=== PATIENT | male | born 1940 | race Caucasian/White ===

== ENCOUNTER 2017-04-21 09:43 | Outpatient (CLI) | payer MEDICARE ==
[~2017-04-21 09:43] MED LIST: ISOVUE-370 76%-LOCM 1 ML ONE
--- NOTE | 2017-04-21 14:41 | RAD ---
CYSTOGRAM: HISTORY: Urinary bladder stone. Surgery. FINDINGS: Approximately 100 cc of water-soluble contrast were instilled into the urinary bladder via the indwe lling suprapubic catheter. Irregularity of the bladder contour is consistent with chronic outlet ob struction and small bladder diverticula. There is no evidence of leak. Excess contrast was drained from the bladder. IMPRESSION: Postoperative changes of the bladder. No evidence of leak. Findings were called to Dr. Henson at 1050 hours. CODE CR POS: [id number]
== END 2017-04-21 09:44 | disposition home or self-care (01) ==
LOC: RAD 09:43
PROVIDERS: ATTEND Urology
DX: N21.0 Calculus in bladder (principal); Z98.890 Other specified postprocedural states
CPT/HCPCS: 51600; 74430

== ENCOUNTER 2018-06-21 11:38 | Outpatient (CLI) | payer MEDICARE ==
--- NOTE | 2018-06-21 13:43 | RAD ---
KUB: Date: 06/21/18 PROVIDED CLINICAL HISTORY: Bladder calculus. FINDINGS: Comparison with 02/07/17. The abdominal bowel gas pattern is nonspecific. No definite radiographically apparent urinary tract c alculi with limitations to overlying bowel content. Multiple phleboliths overlie the pelvis. Visualiz ed lung bases appear clear. Degenerative changes involve the spine. IMPRESSION: As above. POS: OFF
--- NOTE | 2018-06-21 14:53 | ULT ---
BILATERAL RENAL ULTRASOUND: Date: 06/21/18 COMPARISON: None. HISTORY: Renal cyst disease, renal stone disease, BPH. TECHNIQUE: Multiplanar Khalil scale sonographic imaging of the kidneys and the urinary bladder obtained. FINDINGS: Right kidney measures 11.7 x 5.4 x 5.8 cm. Left kidney measures 11.9 x 6.0 x 5.6 cm. Pre-void urinary bladder volume is 67 mL and post-void urinary bladder volume is 36 mL. There is a cyst in the upper pole of the right kidney measuring 2.9 x 3.0 x 2.9 cm. Additional cyst i n upper pole of right kidney medially measures 1.3 x 1.4 x 0.9 cm. No hydronephrosis noted on the rig ht. There is a 1.5 x 1.3 x 1.4 cm cyst in the lower pole of the left kidney. There is a nonspecific hypoechoic lesion in the upper pole of the left kidney measuring 1.5 x 1.5 x 1 .7 cm. This appeared to represent a cyst on the prior CT examination, but on this study demonstrates shadowing, which could be secondary to peripheral wall calcification. This thus does not meet criteri a for a simple cyst based on ultrasound. IMPRESSION: Renal cysts. Nonspecific hypoechoic lesion in upper pole of left kidney as detailed above. Shadowing associated with this lesion is a nonspecific finding which could be related to calcification. Recomme nd follow-up ultrasound in 6 months to document stability. POS: FAROOQ
== END 2018-06-21 11:39 | disposition home or self-care (01) ==
LOC: BICULT 11:38
PROVIDERS: ATTEND Urology
DX: N28.1 Cyst of kidney, acquired (principal); N40.1 Benign prostatic hyperplasia with lower urinary tract symptoms; N20.0 Calculus of kidney; M47.9 Spondylosis, unspecified; Z87.448 Personal history of other diseases of urinary system
CPT/HCPCS: 36415; 74018; 76770; 80048; 81001; 87086

== ENCOUNTER 2018-11-14 07:33 | Outpatient (CLI) | payer MEDICARE ==
[2018-11-14 08:12] LABS: Estimated GFR-MDRD - POC Greater than 90
--- NOTE | 2018-11-14 08:51 | CT ---
EXAM: Abdomen and pelvic CT scan with and without contrast: HISTORY: Follow-up renal cyst COMPARISON: None FINDINGS: The visualized lung bases are clear. Liver: Unremarkable. Gallbladder:Unremarkable. Pancreas:Unremarkable Spleen:Unremarkable. Adrenal glands:Unremarkable. Kidneys:Small nonobstructing right renal calculus.Multiple stable bilateral renal cysts. No evidence for bowel obstruction. No CT evidence for acute appendicitis. Urinary bladder appears unremarkable. Please noted bladder stone is no longer evident. No abscess, adenopathy, or abnormal fluid collection within the abdomen or pelvis. Prostate gland enlargement. Bilateral fat-containing hernias. IMPRESSION: Stable bilateral renal cysts. Small stable nonobstructing right renal calculus. Previously noted blad trinity calculus is no longer present. Other findings as above, stable.
[2018-11-14] MEDS ORDERED: Iopamidol 370 76% 100 ML VIAL ONE (14:36)
== END 2018-11-14 07:34 | disposition home or self-care (01) ==
LOC: CT 07:33
PROVIDERS: ATTEND Urology
DX: N20.0 Calculus of kidney (principal); N28.1 Cyst of kidney, acquired; N40.0 Benign prostatic hyperplasia without lower urinary tract symptoms; K46.9 Unspecified abdominal hernia without obstruction or gangrene; Z87.448 Personal history of other diseases of urinary system
CPT/HCPCS: 74178; 82565; Q9967

== ENCOUNTER 2020-12-04 23:16 | Observation (INO) | payer MEDICARE ==
[2020-12-04 23:55] LABS: #Basophils 0.1 thou/uL (0.0-0.2); #Eosinphils 0.4 thou/uL (0.0-0.7); #Lymphocytes 2.1 thou/uL (1.20-3.40); #Monocytes 0.6 thou/uL (0.11-0.59); #Neutrophils 4.5 thou/uL (1.40-6.50); %Basophils 0.9 % (0.0-1.0); %Eosinophils 4.9 % (0.0-10.0); %Monocytes 7.6 % (0.0-10.0); %Neutrophils 58.5 % (42.0-75.0); Hemoglobin 14.7 g/dL (14.0-18.0); Mean Corpuscular HGB CONC 33.9 g/dL (32.0-36.0); Mean Corpuscular Hemoglobin 32.6 pg (27.0-31.0); Mean Corpuscular Volume 96.2 fL (78.0-98.0); Mean Platelet Volume 7.4 fL (7.4-10.4); Platelet Count 193 thou/uL (130-400); RBC Distribution Width 13.4 % (11.5-14.5); Red Blood Cell (RBC) Count 4.51 mill/uL (4.70-6.10); White Blood Cell (WBC) Count 7.6 thou/uL (4.8-10.8)
[2020-12-05 00:16] LABS: ALT (SGPT) 26 U/L (8-55); AST (SGOT) 24 U/L (5-34); Albumin 4.1 g/dL (3.4-4.8); Alkaline Phosphatase 53 U/L (40-110); Anion Gap 12 mmol/L (10-20); BUN (Urea Nitrogen) 19 mg/dL (8.4-25.7); Bilirubin, Total 0.6 mg/dL (0.2-1.2); Calc. Creatinine Clearance 0 mL/min (70-130); Calcium 9.2 mg/dL (7.8-10.44); Carbon Dioxide 24 mmol/L (23-31); Chloride 108 mmol/L (98-107); Globulin 2.9 g/dL (2.4-3.5); Glucose 102 mg/dL (83-110); Potassium 4.4 mmol/L (3.5-5.1); Sodium 140 mmol/L (136-145)
[2020-12-05] MEDS ORDERED: Ondansetron ODT 4 MG TAB PO PRN (04:03)
[2020-12-05] MEDS ORDERED: Ondansetron PF 4 MG/2 ML Vial IVP PRN (04:03)
[2020-12-05] MEDS ORDERED: Acetaminophen 325 MG TAB PO PRN (04:03)
[2020-12-05] MEDS ORDERED: Aspirin Chewable 81 MG TAB PO SCH (04:15)
[2020-12-05] MEDS ORDERED: hydrALAZINE 20 MG/ML VIAL SLOW IVP PRN (04:29)
[2020-12-05 04:41] LABS: Bilirubin Negative (Negative); Blood, Urine Negative (Negative); Clarity Clear (Clear); Glucose, Urine (Dipstick) Normal (Negative); Ketone, Urine 10 mg/dL (Negative); Leukocyte Negative Leu/uL (Negative); Nitrite Negative (Negative); Protein, Urine (Dipstick) Negative (Neg-Trace); Specific Gravity, Urine 1.019 (1.002-1.036); Urobilinogen Normal mg/dL (Less than 2)
[2020-12-05] MEDS ORDERED: Aspirin Chewable 81 MG TAB ONE ×2 (04:57→09:08)
[2020-12-05 05:48] LABS: Troponin I 0.019 ng/mL (< 0.028)
[2020-12-05 07:53] LABS: SARS-CoV-2 NAA Rapid Test Not Detected (NotDetected)
[2020-12-05] MEDS ORDERED: Enoxaparin Sodium 40 MG/0.4 ML SYRINGE ONE (09:08)
[2020-12-05] MEDS: Enoxaparin Sodium 40 MG/0.4 ML SYRINGE SC SCH (09:13)
[2020-12-05] MEDS: Aspirin 81 mg Enteric Coated Tablet PO SCH (09:13)
[2020-12-05] MEDS ORDERED: Iopamidol-370 76% 500 ML 1 ML ONE (12:46)
[2020-12-05 16:48] VITALS: BMI 36.6
[2020-12-05 19:55] LABS: Magnesium 1.9 mg/dL (1.6-2.6)
[2020-12-05] MEDS ORDERED: Rosuvastatin 5 MG TAB PO SCH (21:00)
[2020-12-05] MEDS ORDERED: Atorvastatin Calcium 40 MG TAB PO SCH (21:00)
[2020-12-05] MEDS: Sotalol HCl 80 MG TAB PO SCH (21:02)
[2020-12-06 05:36] LABS: #Basophils 0.1 thou/uL (0.0-0.2); #Eosinphils 0.2 thou/uL (0.0-0.7); #Lymphocytes 1.5 thou/uL (1.20-3.40); #Monocytes 0.6 thou/uL (0.11-0.59); %Basophils 0.8 % (0.0-1.0); %Eosinophils 3.4 % (0.0-10.0); %Lymphocytes 20.6 % (21.0-51.0); %Monocytes 7.8 % (0.0-10.0); %Neutrophils 67.4 % (42.0-75.0); Mean Corpuscular HGB CONC 33.5 g/dL (32.0-36.0); Mean Corpuscular Hemoglobin 32.2 pg (27.0-31.0); Mean Corpuscular Volume 96.2 fL (78.0-98.0); Mean Platelet Volume 7.6 fL (7.4-10.4); Platelet Count 179 thou/uL (130-400); RBC Distribution Width 13.2 % (11.5-14.5); Red Blood Cell (RBC) Count 4.36 mill/uL (4.70-6.10); White Blood Cell (WBC) Count 7.4 thou/uL (4.8-10.8)
[2020-12-06] MEDS ORDERED: Levothyroxine 150 MCG TAB PO SCH (06:00)
[2020-12-06 06:13] LABS: Anion Gap 11 mmol/L (10-20); BUN (Urea Nitrogen) 14 mg/dL (8.4-25.7); Calc. Creatinine Clearance 119 mL/min (70-130); Calcium 8.7 mg/dL (7.8-10.44); Carbon Dioxide 25 mmol/L (23-31); Cardiac Risk 4.3 (Less than 4.5); Chloride 106 mmol/L (98-107); Cholesterol 160 mg/dl (< 200 Desired); Glucose 91 mg/dL (83-110); HDL Cholesterol 37 mg/dL (>60 Neg Risk); LDL Cholesterol, Calculated 83 mg/dL; Sodium 138 mmol/L (136-145); Triglycerides 199 mg/dL (Less than 150)
[2020-12-06 08:40] LABS: Hemoglobin A1c 4.6 % (4.0-6.0)
[2020-12-06] MEDS ORDERED: Tamsulosin HCl 0.4 MG CAP PO SCH (09:00)
[2020-12-06] MEDS ORDERED: Losartan 25 MG TAB PO SCH ×2 (09:00→10:50)
[2020-12-06] MEDS: Aspirin 81 mg Enteric Coated Tablet PO SCH (09:34)
[2020-12-06] MEDS: Enoxaparin Sodium 40 MG/0.4 ML SYRINGE SC SCH (09:34)
[2020-12-06] MEDS: Sotalol HCl 80 MG TAB PO SCH (09:35)
[2020-12-06 16:23] VITALS: BP 116/71; TEMP 97.6
== END 2020-12-06 16:32 | disposition home or self-care (01) ==
LOC: ERS 23:16 → ERHOLD 12-05 04:04 → 2SE 12-05 14:24
PROVIDERS: ADMIT Student in an Organized Health Care Education/Training Program; ATTEND Internal Medicine
DX: R42 Dizziness and giddiness (principal); R41.0 Disorientation, unspecified; E03.9 Hypothyroidism, unspecified; I25.10 Atherosclerotic heart disease of native coronary artery without angina pectoris; I16.0 Hypertensive urgency; I11.9 Hypertensive heart disease without heart failure; E78.5 Hyperlipidemia, unspecified; G89.29 Other chronic pain; M54.5 Low back pain; I73.9 Peripheral vascular disease, unspecified; I65.23 Occlusion and stenosis of bilateral carotid arteries; I70.0 Atherosclerosis of aorta; I08.3 Combined rheumatic disorders of mitral, aortic and tricuspid valves; Z79.82 Long term (current) use of aspirin; Z79.899 Other long term (current) drug therapy; Z88.1 Allergy status to other antibiotic agents; Z91.041 Radiographic dye allergy status; Z95.1 Presence of aortocoronary bypass graft; Z20.822 Contact with and (suspected) exposure to COVID-19
CPT/HCPCS: 70450; 70496; 70498; 70551; 71045; 80048; 80053; 80061; 81003; 83036; 83735; 84132; 84443; 84484 ×3; 85025 ×2; 93005; 93306; 96372 ×2; 97139 ×4; 99285; G0378 ×3; U0002; 36415; J1650; Q9967

== ENCOUNTER 2020-12-18 02:21 | Emergency (ER) | payer MEDICARE ==
[2020-12-18 03:00] LABS: #Basophils 0.1 thou/uL (0.0-0.2); #Eosinphils 0.3 thou/uL (0.0-0.7); #Lymphocytes 1.9 thou/uL (1.20-3.40); #Monocytes 0.6 thou/uL (0.11-0.59); %Eosinophils 3.7 % (0.0-10.0); %Lymphocytes 24.4 % (21.0-51.0); %Monocytes 7.9 % (0.0-10.0); Hemoglobin 14.9 g/dL (14.0-18.0); Mean Corpuscular Hemoglobin 32.9 pg (27.0-31.0); Mean Corpuscular Volume 96.7 fL (78.0-98.0); Mean Platelet Volume 7.7 fL (7.4-10.4); Platelet Count 197 thou/uL (130-400); RBC Distribution Width 13.5 % (11.5-14.5); Red Blood Cell (RBC) Count 4.52 mill/uL (4.70-6.10); White Blood Cell (WBC) Count 7.9 thou/uL (4.8-10.8)
[2020-12-18 03:18] LABS: ALT (SGPT) 28 U/L (8-55); AST (SGOT) 22 U/L (5-34); Albumin 4.1 g/dL (3.4-4.8); Alkaline Phosphatase 50 U/L (40-110); Anion Gap 10 mmol/L (10-20); BUN (Urea Nitrogen) 18 mg/dL (8.4-25.7); Bilirubin, Total 0.5 mg/dL (0.2-1.2); CK (CPK) 206 U/L (30-200); Calc. Creatinine Clearance 0 mL/min (70-130); Calcium 9.2 mg/dL (7.8-10.44); Carbon Dioxide 27 mmol/L (23-31); Chloride 108 mmol/L (98-107); Globulin 2.8 g/dL (2.4-3.5); Glucose 92 mg/dL (83-110); Potassium 4.3 mmol/L (3.5-5.1); Protein, Total 6.9 g/dL (5.8-8.1); Sodium 141 mmol/L (136-145)
[2020-12-18] MEDS ORDERED: Nitroglycerin 2% Ointment 1 INCH/1 GM Packet ONE (03:24)
== END 2020-12-18 04:00 | disposition home or self-care (01) ==
LOC: ERS 02:21
DX: I10 Essential (primary) hypertension (principal); R06.00 Dyspnea, unspecified; E03.9 Hypothyroidism, unspecified
CPT/HCPCS: 36415; 71045; 80053; 82550; 83880; 84484; 85025; 93005

== ENCOUNTER 2021-07-17 21:03 | Emergency (ER) | payer MEDICARE ==
[2021-07-17 21:46] LABS: #Eosinphils 0.1 thou/uL (0.0-0.7); #Lymphocytes 1.2 thou/uL (1.20-3.40); #Monocytes 0.5 thou/uL (0.11-0.59); #Neutrophils 2.8 thou/uL (1.40-6.50); %Eosinophils 2.4 % (0.0-10.0); %Lymphocytes 25.3 % (21.0-51.0); %Monocytes 11.6 % (0.0-10.0); %Neutrophils 60.7 % (42.0-75.0); Mean Corpuscular Hemoglobin 32.6 pg (27.0-31.0); Mean Corpuscular Volume 98.7 fL (78.0-98.0); Mean Platelet Volume 7.9 fL (7.4-10.4); Platelet Count 136 thou/uL (130-400); RBC Distribution Width 13.4 % (11.5-14.5); Red Blood Cell (RBC) Count 4.59 mill/uL (4.70-6.10); White Blood Cell (WBC) Count 4.6 thou/uL (4.8-10.8)
[2021-07-17] MEDS ORDERED: Acetaminophen 500 MG TAB ONE (21:46)
[2021-07-17 22:07] LABS: ALT (SGPT) 33 U/L (8-55); AST (SGOT) 28 U/L (5-34); Albumin 4.2 g/dL (3.4-4.8); Alkaline Phosphatase 60 U/L (40-110); Anion Gap 14 mmol/L (10-20); BUN (Urea Nitrogen) 15 mg/dL (8.4-25.7); Bilirubin, Total 0.7 mg/dL (0.2-1.2); Calc. Creatinine Clearance 0 mL/min (70-130); Calcium 8.9 mg/dL (7.8-10.44); Carbon Dioxide 25 mmol/L (23-31); Chloride 104 mmol/L (98-107); Globulin 2.9 g/dL (2.4-3.5); Glucose 99 mg/dL (83-110); Potassium 4.2 mmol/L (3.5-5.1); Protein, Total 7.1 g/dL (5.8-8.1); Sodium 139 mmol/L (136-145)
[2021-07-17] MEDS ORDERED: Labetalol HCl 100 MG/20 ML VIAL ONE (22:17)
[2021-07-17 22:23] LABS: Lipase 25 U/L (8-78); Magnesium 1.9 mg/dL (1.6-2.6)
[2021-07-18 00:31] LABS: SARS-CoV-2 NAA Rapid Test DETECTED (NotDetected)
== END 2021-07-18 01:16 | disposition home or self-care (01) ==
LOC: ERS 21:03
DX: U07.1 COVID-19 (principal); I10 Essential (primary) hypertension; E03.9 Hypothyroidism, unspecified; Z79.899 Other long term (current) drug therapy
CPT/HCPCS: 0240U; 71045; 80053; 83605; 83690; 83735; 83880; 84484; 85025; 87040; 93005; 36415; 96374

== ENCOUNTER 2021-08-03 14:16 | Outpatient (CLI) | payer MEDICARE | END 2021-08-03 14:17 | disposition home or self-care (01) | LOC: BICRAD 14:16 | PROVIDERS: ATTEND Urology | DX: N20.0 Calculus of kidney (principal); N28.1 Cyst of kidney, acquired; N40.1 Benign prostatic hyperplasia with lower urinary tract symptoms | CPT/HCPCS: 74018 ==

== ENCOUNTER 2023-03-01 08:30 | Outpatient (CLI) | payer MEDICARE ==
[2023-03-01] MEDS ORDERED: Iopamidol 370 76% 100 ML VIAL ONE (09:04)
== END 2023-03-01 08:31 | disposition home or self-care (01) ==
LOC: CT 08:30
PROVIDERS: ATTEND Urology
DX: N28.1 Cyst of kidney, acquired (principal); N20.0 Calculus of kidney
CPT/HCPCS: 74170; Q9967

== ENCOUNTER 2024-02-06 10:05 | Emergency (ER) | payer MEDICARE ==
[2024-02-06] MEDS ORDERED: HYDROcodone/Acetaminophen 5/325 mg Tablet ONE (11:00)
[2024-02-06] MEDS ORDERED: Boostrix 0.5 ML (Tdap) VIAL (>/=7 yrs of age) ONE (11:02)
[2024-02-06 12:04] LABS: #Basophils 0.05 10x3/uL (0.0-0.2); %Basophils 0.5 % (0.0-1.0); %Eosinophils 2.3 % (0.0-10.0); %Lymphocytes 17.6 % (21.0-51.0); %Monocytes 8.6 % (0.0-10.0); %Neutrophils 70.7 % (42.0-75.0); Hematocrit 42.4 % (42.0-52.0); Hemoglobin 14.1 g/dL (14.0-18.0); Mean Corpuscular HGB CONC 33.3 g/dL (32.0-36.0); Mean Corpuscular Hemoglobin 31.2 pg (27.0-31.0); Mean Corpuscular Volume 93.8 fL (78.0-98.0); Mean Platelet Volume 9.5 fL (7.4-10.4); Platelet Count 250 10x3/uL (130-400); Red Blood Cell (RBC) Count 4.52 mill/uL (4.70-6.10)
[2024-02-06 12:25] LABS: CRP,High Sensitivity (Inhouse) 2.96 mg/dL (< or = 0.5)
[2024-02-06 12:26] LABS: ALT (SGPT) 21 U/L (8-55); AST (SGOT) 15 U/L (5-34); Albumin 3.3 g/dL (3.4-4.8); Alkaline Phosphatase 61 U/L (40-110); Anion Gap 9 mmol/L (10-20); BUN (Urea Nitrogen) 15 mg/dL (8.4-25.7); Bilirubin, Total 0.4 mg/dL (0.2-1.2); Calc. Creatinine Clearance 0 mL/min (70-130); Calcium 9.1 mg/dL (7.8-10.44); Carbon Dioxide 25 mmol/L (23-31); Chloride 108 mmol/L (98-107); Estimated GFR 88; Globulin 3.5 g/dL (2.4-3.5); Glucose 99 mg/dL (83-110); Potassium 4.1 mmol/L (3.5-5.1); Protein, Total 6.8 g/dL (5.8-8.1); Sodium 138 mmol/L (136-145)
== END 2024-02-06 13:53 | disposition home or self-care (01) ==
LOC: ERS 10:05
DX: M54.12 Radiculopathy, cervical region (principal); L03.113 Cellulitis of right upper limb; I10 Essential (primary) hypertension
CPT/HCPCS: 36415; 80053; 83605; 85025; 86141; 87040; 90471; 90715

== ENCOUNTER 2025-04-11 00:40 | Emergency (ER) | payer MEDICARE ==
[2025-04-11] MEDS ORDERED: Ondansetron PF 4 MG/2 ML Vial ONE (01:07)
[2025-04-11 01:13] LABS: #Basophils 0.04 10x3/uL (0.0-0.2); #Eosinophils 0.20 10x3/uL (0.0-0.7); #Monocytes 0.84 10x3/uL (0.11-0.59); #Neutrophils 6.51 10x3/uL (1.40-6.50); %Basophils 0.4 % (0.0-1.0); %Eosinophils 2.2 % (0.0-10.0); %Lymphocytes 16.4 % (21.0-51.0); %Monocytes 9.2 % (0.0-10.0); %Neutrophils 71.5 % (42.0-75.0); Hematocrit 42.1 % (42.0-52.0); Hemoglobin 13.1 g/dL (14.0-18.0); Mean Corpuscular Hemoglobin 30.0 pg (27.0-31.0); Mean Corpuscular Volume 96.3 fL (78.0-98.0); Platelet Count 196 10x3/uL (130-400); Red Blood Cell (RBC) Count 4.37 mill/uL (4.70-6.10); White Blood Cell (WBC) Count 9.11 10x3/uL (4.8-10.8)
[2025-04-11 01:55] LABS: ALT (SGPT) 28 U/L (Less than 45); AST (SGOT) 45 U/L (11-34); Albumin 3.6 g/dL (3.1-4.5); Alkaline Phosphatase 58 U/L (40-110); Anion Gap 16 mmol/L (10-20); BUN (Urea Nitrogen) 20 mg/dL (8.4-25.7); Bilirubin, Total 0.7 mg/dL (0.3-1.2); Calc. Creatinine Clearance 0 mL/min (70-130); Calcium 9.2 mg/dL (7.8-10.44); Carbon Dioxide 23 mmol/L (23-31); Chloride 106 mmol/L (98-107); Globulin 3.1 g/dL (2.4-3.5); Glucose 114 mg/dL (83-110); Lipase 30 U/L (8-78); Potassium 4.6 mmol/L (3.5-5.1); Sodium 140 mmol/L (136-145)
[2025-04-11] MEDS ORDERED: Ketorolac Tromethamine 30 MG (1 mL) VIAL ONE (03:06)
[2025-04-11 03:16] LABS: Bacteria/HPF None Seen HPF (None Seen); CAUTI Indications for Culture Pelvic or flank pain; Glucose, Urine (Dipstick) Normal (Negative); Leukocyte Negative Leu/uL (Negative); Protein, Urine (Dipstick) Negative (Neg-Trace); RBC/HPF Greater than 50 HPF (0-3); Specific Gravity, Urine 1.025 (1.002-1.036)
[2025-04-11 03:17] LABS: Urine Culture Reflex Yes Yes
[2025-04-11] MEDS ORDERED: cefTRIAXone (ROCEPHIN) 2 GM VIAL ONE (03:30)
== END 2025-04-11 05:26 | disposition home or self-care (01) ==
LOC: ERS 00:40
DX: N20.1 Calculus of ureter (principal); N39.0 Urinary tract infection, site not specified; I10 Essential (primary) hypertension
CPT/HCPCS: 74177; 80053; 81001; 83690; 85025; 87086; 93005; J0696; J1885; 96365; 96375; 96376